=== PATIENT | female | born 1970 | race Caucasian/White ===

== ENCOUNTER 2016-09-29 00:40 | Emergency (ER) | payer OTHER ==
--- NOTE | 2016-09-29 00:48 | PDOC ---
History of Present Illness - General History Source: Patient, EMS, Family (Daughter ) Exam Limitations: No Limitations - History of Present Illness Initial Comments: 09/29/16 01:21 The patient is a 46 year old female, with no significant past medical history, who presents to the emergency department via EMS with sensation of tongue numbness/angioedema for the past 2 hours. The patient states that approximately 2 hours ago, she ate three day old cake and began to feel that her tongue was numb and that her throat was swelling. The patient has no known allergies. The patient reports that she took Loratadine 10mg for her symptoms. EMS reports that she vomited two times en route to the ED. The patient denies fever, chills , body aches, nausea, diarrhea or any dysuria. The patient does report multiple sick contacts as several relatives are sick currently with the flu. The patient s daughter is with her in the ED. Her primary language is Lao, her daughter helped to translate. She has not had a flu shot yet this year. Allergies: None reported. Past Surgical History: None reported. Social History: Non smoker. Denies alcohol or drug use. PCP: Dr. Bennett <Yaritza Mello - Last Filed: 09/29/16 01:22> <Dima Nix - Last Filed: 09/29/16 16:03> - General Stated Complaint: ALLERGIC REACTION Time Seen by Provider: 09/29/16 00:48 Past History <Yaritza Mello - Last Filed: 09/29/16 01:22> - Past Medical History Suicide Attempt (Hx): No - Reproductive History Cervical CA: No Dysfunctional Uterine Bleeding: No Ectopic : No Endometrial CA: No Polycystic Ovaries: No Tubal Ligation: No - Immunization History Td Vaccination: Yes Immunization Up to Date: Yes - Psycho/Social/Smoking Cessation Hx Anxiety: No Suicidal Ideation: No Smoking Status: No Smoking History: Never smoked Number of Cigarettes Smoked Daily: 0 Hx Alcohol Use: No Substance Use Type: None <Dima Nix - Last Filed: 09/29/16 16:03> - Past Medical History Allergies/Adverse Reactions: Allergies Allergy/AdvReac Type Severity Reaction Status Date / Time No Known Allergies Allergy Verified 09/29/16 00:52 Home Medications: Ambulatory Orders Diphenhydramine HCl [Benadryl Capsules -] 25 mg PO TID #30 capsule 09/29/16 Loratadine [Claritin] 10 mg PO DAILY #30 tablet 09/29/16 Review of Systems - Review of Systems Able to Perform ROS?: Yes Comments:: 09/29/16 01:13 GENERAL/CONSTITUTIONAL: No fever or chills. No weakness. HEAD, EYES, EARS, NOSE AND THROAT: +Sensation of tongue numbness/angioedema. No change in vision. No ear pain or discharge. No sore throat. CARDIOVASCULAR: No chest pain or shortness of breath. RESPIRATORY: No cough, wheezing, or hemoptysis. GASTROINTESTINAL: +Vomiting. No nausea, diarrhea or constipation. GENITOURINARY: No dysuria, frequency, or change in urination. MUSCULOSKELETAL: No joint or muscle swelling or pain. No neck or back pain. SKIN: No rash. NEUROLOGIC: No headache, vertigo, loss of consciousness, or change in strength/ sensation. ENDOCRINE: No increased thirst. No abnormal weight change. HEMATOLOGIC/LYMPHATIC: No anemia, easy bleeding, or history of blood clots. ALLERGIC/IMMUNOLOGIC: No hives or skin allergy. <Yaritza Mello - Last Filed: 09/29/16 01:22> *Physical Exam - Physical Exam Comments: 09/29/16 00:57 GENERAL: Awake, alert, and fully oriented, in no acute distress. HEAD: No signs of trauma. EYES: PERRLA, EOMI, sclera anicteric, conjunctiva clear. ENT: Auricles normal inspection, hearing grossly normal, nares patent, oropharynx clear without exudates. Moist mucosa. NECK: Normal ROM, supple, no lymphadenopathy, JVD, or masses. LUNGS: Breath sounds equal, clear to auscultation bilaterally. No wheezes, and no crackles. HEART: Regular rate and rhythm, normal S1 and S2, no murmurs, rubs or gallops. ABDOMEN: Soft, nontender, normoactive bowel sounds. No guarding, no rebound. No masses. EXTREMITIES: Normal range of motion, no edema. No clubbing or cyanosis. No cords , erythema, or tenderness. NEUROLOGICAL: Cranial nerves II through XII grossly intact. Normal speech, normal gait. SKIN: Warm, dry, normal turgor, no rashes or lesions noted. <Yaritza Mello - Last Filed: 09/29/16 01:22> ED Treatment Course - LABORATORY CBC & Chemistry Diagram: 09/29/16 01:28 09/29/16 01:28 <Dima Nix - Last Filed: 09/29/16 16:03> *DC/Admit/Observation/Transfer - Attestations Scribe Attestion: 09/29/16 00:53 Documentation prepared by Yaritza Mello, acting as medical delivery driver for Dima Nix MD, /DO. <Yaritza Mello - Last Filed: 09/29/16 01:22> - Discharge Dispostion Admit: No <Dima Nix - Last Filed: 09/29/16 16:03> Diagnosis at time of Disposition: Allergic reaction Qualifiers: Encounter type: initial encounter Qualified Code(s): T78.40XA - Allergy, unspecified, initial encounter - Discharge Dispostion Disposition: HOME Condition at time of disposition: Stable - Prescriptions Prescriptions: Diphenhydramine HCl [Benadryl Capsules -] 25 mg PO TID #30 capsule Loratadine [Claritin] 10 mg PO DAILY #30 tablet - Referrals Referrals: STAFF,NOT ON [Primary Care Provider] - - Patient Instructions Printed Discharge Instructions: DI for General Allergic Reactions Additional Instructions: Please follow up with your doctor for referral for allergy testing
[2016-09-29 00:55] VITALS: BP 112/84; PULSE 76; TEMP 99; BMI 29.6
[2016-09-29] MEDS ORDERED: ONDANSETRON 4 MG/2 ML VIAL IVPUSH ONE (00:59)
[2016-09-29] MEDS ORDERED: SODIUM CHLORIDE 1,000 ML IV SCH (01:00)
[2016-09-29] MEDS ORDERED: ONDANSETRON 4 MG/2 ML VIAL ONE (01:35)
[2016-09-29 01:45] LABS: BASOPHIL 0.8 % (0-2.0); EOSINOPHIL 3.4 % (0-4.5); MCH 28.9 pg (25.7-33.7); MCHC 33.2 g/dl (32.0-36.0); MEAN CELL VOLUME 87.3 fl (80-96); MEAN PLT VOLUME 9.7 fl (7.5-11.1); NEUTROPHILS 51.7 % (42.8-82.8); PLATELET COUNT 127 K/MM3 (134-434); RDW 12.7 % (11.6-15.6); WHITE BLOOD COUNT 3.1 K/mm3 (4.0-10.0)
[2016-09-29 02:11] LABS: ALBUMIN 3.9 g/dl (3.4-5.0); ANION GAP 10 (8-16); BILIRUBIN,TOTAL 0.4 mg/dL (0.2-1.0); CALCIUM 8.7 mg/dL (8.5-10.1); CO2 27 mmol/L (21-32); CREATININE 0.9 mg/dL (0.55-1.02); GLUCOSE,RANDOM 89 mg/dL (74-106); SGPT/ALT 20 U/L (12-78); TOT PROT 7.1 g/dl (6.4-8.2)
[2016-09-29 02:12] LABS: ALK PHOS 66 U/L (45-117)
[2016-09-29 02:26] LABS: SGOT/AST 19 U/L (15-37)
[2016-09-29] MEDS ORDERED: diphenhydrAMINE HCL 25 MG CAPSULE (FP) PO ONE ×2 (03:00→03:06)
--- NOTE | 2016-09-29 03:03 | PDOC ---
*Physical Exam - Vital Signs Last Vital Signs Temp Pulse Resp BP Pulse Ox 99 F 76 18 112/84 99 09/29/16 00:53 09/29/16 00:53 09/29/16 00:53 09/29/16 00:53 09/29/16 00:53 ED Treatment Course - LABORATORY CBC & Chemistry Diagram: 09/29/16 01:28 09/29/16 01:28 - ADDITIONAL ORDERS Additional order review: Laboratory Results 09/29/16 01:28 Sodium 140 Potassium 4.4 Chloride 103 Carbon Dioxide 27 Anion Gap 10 BUN 18 Creatinine 0.9 D Creat Clearance w eGFR > 60 Random Glucose 89 Calcium 8.7 Total Bilirubin 0.4 D AST 19 D ALT 20 D Alkaline Phosphatase 66 Total Protein 7.1 Albumin 3.9 09/29/16 01:28 Influenza Types A,B Antigen ([facility]WANDA) - Final Nasopharyngeal Swab - Final 09/29/16 01:28 Group A Strep Rapid Antigen - Final Throat 09/29/16 01:28 RBC 4.53 MCV 87.3 MCHC 33.2 RDW 12.7 MPV 9.7 Neutrophils % 51.7 D Lymphocytes % 34.8 D Monocytes % 9.3 Eosinophils % 3.4 Basophils % 0.8 - Medications Given in the ED: ED Medications Discontinued Medications Generic Name Dose Route Start Last Admin Trade Name Freq PRN Reason Stop Dose Admin Ondansetron HCl 4 mg 09/29/16 00:59 09/29/16 01:38 Zofran Injection IVPUSH 09/29/16 01:00 Not Given ONCE ONE *DC/Admit/Observation/Transfer Diagnosis at time of Disposition: Allergic reaction Qualifiers: Encounter type: initial encounter Qualified Code(s): T78.40XA - Allergy, unspecified, initial encounter - Discharge Dispostion Disposition: HOME Condition at time of disposition: Stable Admit: No - Patient Instructions Printed Discharge Instructions: DI for General Allergic Reactions Additional Instructions: Please follow up with your doctor for referral for allergy testing
--- NOTE | 2016-09-29 11:02 | EKG ---
Test Reason : Blood Pressure : / mmHG Vent. Rate : 059 BPM Atrial Rate : 059 BPM P-R Int : 156 ms QRS Dur : 098 ms QT Int : 450 ms P-R-T Axes : 051 045 035 degrees QTc Int : 445 ms SINUS BRADYCARDIA INCOMPLETE RIGHT BUNDLE BRANCH BLOCK NONSPECIFIC T WAVE ABNORMALITY NO PREVIOUS ECGS AVAILABLE Confirmed by JUSTINO BEE MD ([id number]) on 09/29/2016 11:02:44 AM Referred By: Confirmed By:JUSTINO BEE MD
== END 2016-09-29 03:14 | disposition home or self-care (01) ==
LOC: JER 00:40
PROC: 3E0337Z Introduction of Electrolytic and Water Balance Substance into Peripheral Vein, Percutaneous Approach (ICD-10-PCS; principal; 2016-09-29)
DX: T78.1XXA Other adverse food reactions, not elsewhere classified, initial encounter (principal); T78.3XXA Angioneurotic edema, initial encounter; X58.XXXA Exposure to other specified factors, initial encounter
CPT/HCPCS: 36415; 80053; 85025; 85651; 87070; 87430; 87804; 93005; 93010; 96360; 96361; 99281-25

== ENCOUNTER 2017-08-31 22:28 | Emergency (ER) | payer OTHER ==
[2017-08-31 22:57] VITALS: BP 131/82; PULSE 48; TEMP 98; BMI 29.2
--- NOTE | 2017-08-31 23:20 | PDOC ---
History of Present Illness <Leah Carlos - Last Filed: 09/01/17 01:10> - General History Source: Patient Exam Limitations: No Limitations - History of Present Illness Initial Comments: 09/01/17 00:27 The patient is a 47 year old female with past medical history of cancerous kidney tumor (removed) who presents to the ED with complaints of headache, nausea, vomiting, and palpitations that began at 4:30 pm today. The patient states that her symptoms began as dizziness and lightheadedness that developed into a left temporal headache that radiates down her bilateral jaw. She rates it a 10/10 in severity and is associated with tongue and gum numbness. She additionally reports 3 episodes of nonbloody and nonbilious emesis. Upon arrival to the ED, the patient states she also had palpitations which had subsided. She denies any similar episodes like this in the past. She reports seeing a cash posting specialist recently for an EKG and Echo in which she states were abnormal but has not followed up yet for the official results. The patient denies fevers or chills. <Saloni Garrido - Last Filed: 09/01/17 01:24> <Christina Gray - Last Filed: 09/01/17 21:02> - General Chief Complaint: Weakness Stated Complaint: WEAKNESS Time Seen by Provider: 08/31/17 23:20 Past History - Surgical History Abdominal Surgery: Yes (gastric bypass) - Reproductive History Cervical CA: No Dysfunctional Uterine Bleeding: No Ectopic : No Endometrial CA: No Polycystic Ovaries: No Tubal Ligation: No - Immunization History Td Vaccination: Yes Immunization Up to Date: Yes - Suicide/Smoking/Psychosocial Hx Smoking Status: No Smoking History: Never smoked Have you smoked in the past 12 months: No Number of Cigarettes Smoked Daily: 0 Information on smoking cessation initiated: No Hx Alcohol Use: No Drug/Substance Use Hx: No Substance Use Type: None <Leah Carlos - Last Filed: 09/01/17 01:10> <Saloni Garrido - Last Filed: 09/01/17 01:24> <Christina Gray - Last Filed: 09/01/17 21:02> - Past Medical History Allergies/Adverse Reactions: Allergies Allergy/AdvReac Type Severity Reaction Status Date / Time No Known Allergies Allergy Verified 08/31/17 22:58 Home Medications: Ambulatory Orders NK [No Known Home Medication] 08/31/17 Review of Systems - Review of Systems Able to Perform ROS?: Yes Comments:: 09/01/17 00:27 GENERAL/CONSTITUTIONAL: No fever or chills. No weakness. HEAD, EYES, EARS, NOSE AND THROAT: No change in vision. No ear pain or discharge. No sore throat. CARDIOVASCULAR: Present: palpitations No shortness of breath. RESPIRATORY: No cough, wheezing, or hemoptysis. GASTROINTESTINAL: Present: nausea, vomiting No diarrhea or constipation. GENITOURINARY: No dysuria, frequency, or change in urination. MUSCULOSKELETAL: No joint or muscle swelling or pain. No neck or back pain. SKIN: No rash NEUROLOGIC: Present: headache No vertigo, loss of consciousness, or change in strength/sensation. ENDOCRINE: No increased thirst. No abnormal weight change. HEMATOLOGIC/LYMPHATIC: No anemia, easy bleeding, or history of blood clots. ALLERGIC/IMMUNOLOGIC: No hives or skin allergy. All Other Systems: Reviewed and Negative <Saloni Garrido - Last Filed: 09/01/17 01:24> *Physical Exam - Vital Signs Last Vital Signs Temp Pulse Resp BP Pulse Ox 98.0 F 48 L 18 131/82 100 08/31/17 22:55 08/31/17 22:55 08/31/17 22:55 08/31/17 22:55 08/31/17 22:55 <Leah Carlos - Last Filed: 09/01/17 01:10> - Vital Signs Last Vital Signs Temp Pulse Resp BP Pulse Ox 98.0 F 48 L 18 131/82 100 08/31/17 22:55 08/31/17 23:00 08/31/17 23:00 08/31/17 22:55 08/31/17 23:00 - Physical Exam Comments: 09/01/17 00:32 GENERAL: Awake, alert, and fully oriented, in no acute distress HEAD: No signs of trauma EYES: PERRLA, EOMI, sclera anicteric, conjunctiva clear ENT: Auricles normal inspection, hearing grossly normal, nares patent, oropharynx clear without exudates. Moist mucosa NECK: Normal ROM, supple, no lymphadenopathy, JVD, or masses LUNGS: Breath sounds equal, clear to auscultation bilaterally. No wheezes, and no crackles HEART: Regular rate and rhythm, normal S1 and S2, no murmurs, rubs or gallops ABDOMEN: Soft, nontender, normoactive bowel sounds. No guarding, no rebound. No masses EXTREMITIES: Normal range of motion, no edema. No clubbing or cyanosis. No cords, erythema, or tenderness NEUROLOGICAL: A&O x3, bilateral 5/5 motor strength in upper and lower extremities. Cranial nerves II through XII grossly intact. Normal speech, normal gait SKIN: Warm, Dry, normal turgor, no rashes or lesions noted. <Saloni Garrido - Last Filed: 09/01/17 01:24> - Vital Signs Last Vital Signs Temp Pulse Resp BP Pulse Ox 98.0 F 48 L 18 131/82 100 08/31/17 22:55 08/31/17 23:00 08/31/17 23:00 08/31/17 22:55 08/31/17 23:00 <Christina Gray - Last Filed: 09/01/17 21:02> ED Treatment Course - LABORATORY CBC & Chemistry Diagram: 09/01/17 00:00 09/01/17 00:00 <Leah Carlos - Last Filed: 09/01/17 01:10> - LABORATORY CBC & Chemistry Diagram: 09/01/17 00:00 09/01/17 00:00 - RADIOLOGY Radiograph Interpretation: 09/01/17 01:24 EXAM: CT brain without contrast HISTORY: Headache EXAM DATE AND TIME: 2017-09-01 00:58:45 FINDINGS : No acute findings. No mass effect, hemorrhage, territorial infarct, hydrocephalus or fracture. THIS DOCUMENT HAS BEEN ELECTRONICALLY SIGNED Shaheen Jensen D.O. - Medications Given in the ED: ED Medications Discontinued Medications Generic Name Dose Route Start Last Admin Trade Name Freq PRN Reason Stop Dose Admin Acetaminophen 1,000 mg 09/01/17 00:05 09/01/17 00:11 Ofirmev Injection - IVPB 09/01/17 00:06 1,000 mg ONCE ONE Administration Ondansetron HCl 4 mg 08/31/17 23:22 08/31/17 23:31 Zofran Injection IVPUSH 08/31/17 23:23 4 mg ONCE ONE Administration <Saloni Garrido - Last Filed: 09/01/17 01:24> - LABORATORY CBC & Chemistry Diagram: 09/01/17 00:00 09/01/17 00:00 - ADDITIONAL ORDERS Additional order review: Laboratory Results 09/01/17 09/01/17 00:41 00:00 Sodium 137 Potassium 4.6 Chloride 104 Carbon Dioxide 28 Anion Gap 5 L BUN 13 Creatinine 0.8 Creat Clearance w eGFR > 60 Random Glucose 82 Calcium 8.5 Total Bilirubin 0.7 D AST 14 L D ALT 19 Alkaline Phosphatase 64 Total Protein 7.4 Albumin 3.8 Urine HCG, Qual Negative 09/01/17 00:00 RBC 4.73 MCV 88.2 MCHC 32.8 RDW 12.8 MPV 10.0 Neutrophils % 70.6 D Lymphocytes % 20.3 D Monocytes % 6.3 Eosinophils % 2.2 Basophils % 0.6 - Medications Given in the ED: ED Medications Discontinued Medications Generic Name Dose Route Start Last Admin Trade Name Freq PRN Reason Stop Dose Admin Acetaminophen 1,000 mg 09/01/17 00:05 09/01/17 00:11 Ofirmev Injection - IVPB 09/01/17 00:06 1,000 mg ONCE ONE Administration Metoclopramide HCl 10 mg 09/01/17 01:32 09/01/17 02:03 Reglan Injection - IVPUSH 09/01/17 01:33 10 mg ONCE ONE Administration Ondansetron HCl 4 mg 08/31/17 23:22 08/31/17 23:31 Zofran Injection IVPUSH 08/31/17 23:23 4 mg ONCE ONE Administration <Christina Gray - Last Filed: 09/01/17 21:02> Medical Decision Making - Medical Decision Making 09/01/17 00:58 Pt presents to the ED complaining of the acute onset of jaw pain, L temporal headache, and palpitations that began at 4:30 pm. Differential includes tension headache, less likely subarachnoid. Given her temporal headache and jaw pain, will check ESR to rule out temporal arteritis. Will check CT head to rule out intracranial bleed. 09/01/17 01:10 <Leah Carlos - Last Filed: 09/01/17 01:10> - Medical Decision Making 09/01/17 21:01 I received pt on signout. Labs normal; head CT normal; exam normal, and her sed rate is only 9 and she is stable to go home. <Christina Gray - Last Filed: 09/01/17 21:02> *DC/Admit/Observation/Transfer <Leah Carlos - Last Filed: 09/01/17 01:10> - Attestations Scribe Attestion: 09/01/17 00:32 Documentation prepared by Saloni Garrido, acting as nuclear medical technologist for Leah Carlos MD. <Saloni Garrido - Last Filed: 09/01/17 01:24> - Discharge Dispostion Admit: No <Christina Gray - Last Filed: 09/01/17 21:02> Diagnosis at time of Disposition: Headache - Discharge Dispostion Disposition: HOME Condition at time of disposition: Stable - Patient Instructions Printed Discharge Instructions: DI for Headache
[2017-08-31] MEDS ORDERED: ONDANSETRON 4 MG/2 ML VIAL IVPUSH ONE (23:22)
[2017-08-31] MEDS ORDERED: ONDANSETRON 4 MG/2 ML VIAL ONE (23:22)
[2017-09-01] MEDS ORDERED: ACETAMINOPHEN 1000 MG/100 ML VIAL (NON FORMULARY) IVPB ONE (00:05)
[2017-09-01] MEDS ORDERED: ACETAMINOPHEN INJECTION 100 ML IVPB ONE (00:12)
[2017-09-01 00:20] LABS: BASO % 0.6 % (0-2.0); EOS % 2.2 % (0-4.5); HEMATOCRIT 41.7 % (32.4-45.2); HEMOGLOBIN 13.7 GM/dL (10.7-15.3); LYMPH % 20.3 % (8-40); MCH 28.9 pg (25.7-33.7); MCHC 32.8 g/dl (32.0-36.0); MEAN CELL VOLUME 88.2 fl (80-96); MONO % 6.3 % (3.8-10.2); NEUT % 70.6 % (42.8-82.8); PLATELET COUNT 136 K/MM3 (134-434); RBC 4.73 M/mm3 (3.60-5.2); RDW 12.8 % (11.6-15.6); WHITE BLOOD COUNT 4.4 K/mm3 (4.0-10.0)
[2017-09-01 01:20] LABS: ALBUMIN 3.8 g/dl (3.4-5.0); ANION GAP 5 (8-16); BILIRUBIN,TOTAL 0.7 mg/dL (0.2-1.0); BLOOD UREA NITROGEN 13 mg/dL (7-18); CALCIUM 8.5 mg/dL (8.5-10.1); CHLORIDE 104 mmol/L (98-107); CO2 28 mmol/L (21-32); CREATININE 0.8 mg/dL (0.55-1.02); GLUCOSE,RANDOM 82 mg/dL (74-106); POTASSIUM 4.6 mmol/L (3.5-5.1); SGOT/AST 14 U/L (15-37); SGPT/ALT 19 U/L (12-78); SODIUM 137 mmol/L (136-145); TOT PROT 7.4 g/dl (6.4-8.2)
[2017-09-01 01:21] LABS: ALK PHOS 64 U/L (45-117)
[2017-09-01] MEDS ORDERED: METOCLOPRAMIDE HCL INJECTION 10 MG/2 ML VIAL IVPUSH ONE (01:32)
[2017-09-01] MEDS ORDERED: METOCLOPRAMIDE HCL INJECTION 10 MG/2 ML VIAL ONE (02:11)
[2017-09-01 02:17] LABS: ERYTHROCYTE SEDIMENTATION RATE 9 mm/hr (0-20)
--- NOTE | 2017-09-01 16:44 | EKG ---
Test Reason : Blood Pressure : / mmHG Vent. Rate : 051 BPM Atrial Rate : 051 BPM P-R Int : 000 ms QRS Dur : 098 ms QT Int : 420 ms P-R-T Axes : 000 044 023 degrees QTc Int : 387 ms SINUS BRADYCARDIA WITH SINUS ARRHYTHMIA INCOMPLETE RIGHT BUNDLE BRANCH BLOCK BORDERLINE ECG WHEN COMPARED WITH ECG OF 29-SEP-2016 01:21, NO SIGNIFICANT CHANGE WAS FOUND Confirmed by WILDA BUNN MD ([id number]) on 09/01/2017 4:44:29 PM Referred By: Confirmed By:WILDA BUNN MD
== END 2017-09-01 03:11 | disposition home or self-care (01) ==
LOC: JER 22:28
PROC: 3E033GC Introduction of Other Therapeutic Substance into Peripheral Vein, Percutaneous Approach (ICD-10-PCS; principal; 2017-08-31)
PROC: 3E033GC Introduction of Other Therapeutic Substance into Peripheral Vein, Percutaneous Approach (ICD-10-PCS; 2017-08-31)
PROC: 3E033NZ Introduction of Analgesics, Hypnotics, Sedatives into Peripheral Vein, Percutaneous Approach (ICD-10-PCS; 2017-08-31)
DX: R51 Headache (principal)
CPT/HCPCS: 36415; 70450-TC; 80053; 84703; 85025; 85651; 93005; 93010; 96374; 96375; 99283-25